=== PATIENT | male | born 1990 | race Caucasian/White ===

== ENCOUNTER 2016-09-12 13:06 | Emergency (ER) | payer BC ==
[2016-09-12 13:22] VITALS: BP 105/60
[2016-09-12] MEDS ORDERED: Sodium Chloride 0.9% 10 ML Syringe FLUSH PRN (13:34)
[2016-09-12] MEDS ORDERED: Sodium Chloride 0.9% 1,000 ML IV ONE (13:34)
--- NOTE | 2016-09-12 13:46 | EDM.PDOC ---
ED HPI GENERAL MEDICAL PROBLEM - General Chief Complaint: Laceration Stated Complaint: HEAD INJURY Time Seen by Provider: 09/12/16 13:34 Source of Information: Reports: Patient History Limitations: Reports: No Limitations - History of Present Illness INITIAL COMMENTS - FREE TEXT/NARRATIVE: Patient reports he passed out and fell this morning. He does admit to a lot of alcohol consumption last night. He has no complaints this morning. His main complaint for being here is that after he passed out, he struck his left eye on the kitchen peninsula and cut his left eyebrow/lid. No other complaints. Onset: Today Onset Date: 09/12/16 Onset Time: 11:00 Severity: Mild Left Head Pain Score (Numeric/FACES): 3 - Related Data Allergies Allergy/AdvReac Type Severity Reaction Status Date / Time No Known Allergies Allergy Verified 09/12/16 13:21 Home Meds: Home Meds . [No Known Home Meds] 09/12/16 [History] Past Medical History Musculoskeletal History: Reports: Other (See Below) Other Musculoskeletal History: fracture of leg Social & Family History - Family History Family Medical History: Noncontributory - Tobacco Use Smoking Status *Q: Former Smoker Used Tobacco, but Quit: Yes Month Tobacco Last Used: 2015 - Caffeine Use Caffeine Use: Reports: Coffee - Alcohol Use Days Per Week of Alcohol Use: 1 Number of Drinks Per Day: 2 Total Drinks Per Week: 2 - Recreational Drug Use Recreational Drug Use: No ED ROS GENERAL - Review of Systems Review Of Systems: See Below Constitutional: Reports: No Symptoms HEENT: Reports: No Symptoms Respiratory: Reports: No Symptoms Cardiovascular: Reports: No Symptoms Endocrine: Reports: No Symptoms GI/Abdominal: Reports: No Symptoms : Reports: No Symptoms Musculoskeletal: Reports: No Symptoms Skin: Reports: Wound Neurological: Reports: No Symptoms Psychiatric: Reports: No Symptoms Hematologic/Lymphatic: Reports: No Symptoms Immunologic: Reports: No Symptoms ED EXAM, SKIN/RASH Exam: See Below Exam Limited By: No Limitations General Appearance: Alert, WD/WN, No Apparent Distress Eye Exam: Bilateral Eye: EOMI, PERRL Head: Normocephalic, Other (left eybrow lac) Neck: Normal Inspection Respiratory/Chest: No Respiratory Distress, Lungs Clear, Normal Breath Sounds, No Accessory Muscle Use, Chest Non-Tender Cardiovascular: Normal Peripheral Pulses, Regular Rate, Rhythm, No Edema, No Gallop, No Murmur Neurological: Alert, Oriented, CN II-XII Intact, Normal Cognition, Normal Gait, Normal Reflexes, No Motor/Sensory Deficits Skin: Wound/Incision (2.4 linear lac to inferior left eye brow) ED SKIN PROCEDURES - Laceration/Wound Repair Left Lower Forehead Lac/Wound length In cm: 2.4 (left lower eyebrow) Appearance: Linear, Clean Distal NVT: Neuro & Vascular Intact, No Tendon Injury Skin Prep: Chlorhexidine (Hibiciens) Exploration/Debridement/Repair: Wound Explored, in a Bloodless Field, No Foreign Material Found Closed with: Dermabond Course - Vital Signs Last Recorded V/S: Last Vital Signs Temp 35.8 C 09/12/16 13:18 Pulse 74 09/12/16 13:18 Resp 16 09/12/16 13:18 BP 105/60 09/12/16 13:18 Pulse Ox 96 09/12/16 13:18 - Orders/Labs/Meds Orders: Active Orders 24 hr Category Date Time Status Sodium Chloride 0.9% [Normal Saline] 1,000 ml Med 09/12/16 13:34 Ordered IV ONETIME Sodium Chloride 0.9% [Saline Flush] Med 09/12/16 13:34 Ordered 10 ml FLUSH ASDIRECTED PRN Saline Lock Insert [OM.PC] Routine Oth 09/12/16 13:34 Ordered Medication Orders Sodium Chloride (Normal Saline) 1,000 mls @ 999 mls/hr IV ONETIME ONE Stop: 09/12/16 14:34 Sodium Chloride (Saline Flush) 10 ml FLUSH ASDIRECTED PRN PRN Reason: Keep Vein Open Meds: Medications Generic Name Dose Route Start Last Admin Trade Name Freq PRN Reason Stop Dose Admin Sodium Chloride 1,000 mls @ 999 mls/hr 09/12/16 13:34 Normal Saline IV 09/12/16 14:34 ONETIME ONE Sodium Chloride 10 ml 09/12/16 13:34 Saline Flush FLUSH ASDIRECTED PRN Keep Vein Open Departure - Departure Time of Disposition: :23 Disposition: Home, Self-Care 01 Condition: Good Clinical Impression: Laceration of eyebrow, left, Dehydration, mild - Discharge Information Instructions: Laceration Care, Adult, [id number], Wound Infection, Easy-to- Read, Rehydration, Adult Forms: ED Department Discharge Additional Instructions: The dermabond applied to your eyebrow should self dissolve in 7-10 days Do not scrub the area to break it off. Let it come off on its own, allowing your skin time to heal itself Watch for signs of infection that can include increased redness and swelling, pus like drainage from the area, temperature greater than 101.5F, area becomes hot to the touch. Keep the area clean and dry, may wash with soap and water Common reaction to tetanus is injection site redness as well as soreness Follow up with your primary doctor as needed Please call us with any questions or concerns - My Orders Last 24 Hours: My Active Orders 09/12/16 13:34 Sodium Chloride 0.9% [Normal Saline] 1,000 ml IV ONETIME Sodium Chloride 0.9% [Saline Flush] 10 ml FLUSH ASDIRECTED PRN Saline Lock Insert [OM.PC] Routine - Assessment/Plan Last 24 Hours: My Active Orders 09/12/16 13:34 Sodium Chloride 0.9% [Normal Saline] 1,000 ml IV ONETIME Sodium Chloride 0.9% [Saline Flush] 10 ml FLUSH ASDIRECTED PRN Saline Lock Insert [OM.PC] Routine
== END 2016-09-12 14:30 | disposition home or self-care (01) ==
LOC: VM.ED 13:06
DX: S01.112A Laceration without foreign body of left eyelid and periocular area, initial encounter (principal); E86.0 Dehydration; Z87.891 Personal history of nicotine dependence; W19.XXXA Unspecified fall, initial encounter
CPT/HCPCS: 12011; 96360; 99284; J7030

== ENCOUNTER 2024-12-18 13:23 | Emergency (ER) | payer BC, OTHER ==
[2024-12-18 14:03] VITALS: BP 143/82; PULSE 79
== END 2024-12-18 14:00 | disposition home or self-care (01) ==
LOC: VM.ED 13:23
DX: S61.411A Laceration without foreign body of right hand, initial encounter (principal); S61.412A Laceration without foreign body of left hand, initial encounter; W26.8XXA Contact with other sharp object(s), not elsewhere classified, initial encounter; Y99.0 Civilian activity done for income or pay
CPT/HCPCS: 99282